=== PATIENT | female | born 1960 | race Caucasian/White ===

== ENCOUNTER 2016-08-01 00:21 | Emergency (ER) | payer MEDICARE, MEDICAID ==
[2016-08-01 00:45] LABS: BASO % 0.1 % (0-2); HCT-HEMATOCRIT 41.7 % (34.0-49.0); HGB-HEMOGLOBIN 14.1 gm/dl (12.0-15.5); IMMATURE GRANULOCYTES ABSOLUTE 0.03 tho/cmm (0-0.03); IMMATURE GRANULOCYTES PERCENT 0.3 % (0-0.3); LYMPH % 12.3 % (20-45); LYMPH ABSOLUTE COUNT 1.3 tho/cmm (0.8-4.5); MCH (MEAN CORPUSCULAR HGB) 29.6 pg (28.0-32.0); MCHC MEAN CORPUSCULAR HGB CONC 33.8 % (32.0-36.0); MCV (MEAN CELL VOLUME) 87.4 fl (82.0-96.0); MEAN PLATELET VOLUME 10.1 cmc (9.4-12.4); MONO % 2.1 % (0-12); MONOCYTE ABSOLUTE COUNT 0.2 tho/cmm (0.0-1.2); NEUTROPHIL ABSOLUTE COUNT 9.2 tho/cmm (1.6-8.0); NEUTROPHIL-AUTOMATED 9.2 tho/cmm (1.6-8.0); NEUTROPHILS % 85.2 % (40-80); PLATELET COUNT 297 tho/cmm (150-450); RED BLOOD COUNT 4.77 mil/cmm (4.00-5.20); RED CELL DISTRIBUTION WIDTH 12.3 % (12.4-16.4); WHITE BLOOD COUNT 10.8 tho/cmm (4.0-10.0)
[2016-08-01 01:05] LABS: ALKALINE PHOSPHATASE 54 U/L (33-138); ALT/SGPT 24 U/L (12-78); BILIRUBIN,TOTAL 0.5 mg/dl (0-1.5); BLOOD UREA NITROGEN 14 mg/dl (6-24); CALCIUM 9.7 mg/dl (8.5-10.5); CARBON DIOXIDE-VENOUS 24 mmol/L (22-32); CHLORIDE 105 mmol/l (96-110); GLUCOSE 128 mg/dL (70-110); SODIUM 139 mmol/L (135-145); eGFR VALUE FOR BLACK >60 mL/Min
[2016-08-01 01:07] LABS: ANION GAP 15 mmol/L (0-20); POTASSIUM 4.5 mmol/L (3.7-5.1)
[2016-08-01 01:08] LABS: AST/SGOT 35 U/L (10-40)
[2016-08-01 01:33] LABS: URINE BILIRUBIN NEGATIVE (NEG); URINE BLOOD LARGE (NEG); URINE GLUCOSE (UA) NEGATIVE (NEG); URINE KETONE SMALL (NEG); URINE LEUKOCYTE ESTERASE NEGATIVE (NEG); URINE NITRITE NEGATIVE (NEG)
[2016-08-01 01:35] LABS: URINE APPEARANCE HAZY; URINE COLOR PALE YELLOW; URINE SPECIFIC GRAVITY 1.005 (1.003-1.030)
[2016-08-01 01:47] LABS: URINE PROT SULFOSALICYLIC ACID TRACE (NEG)
[2016-08-01 01:48] LABS: URINE EPITHELIAL CELLS RARE /[HPF] (0-10); URINE RBC 30-40 /[HPF] (0-5); URINE WBC RARE /[HPF] (0-5)
[2016-08-01] MEDS ORDERED: CYMBALTA60 M1 PO (02:06)
[2016-08-01] MEDS ORDERED: FISH OIL GUMMI1 EACH PO (02:08)
[2016-08-01] MEDS ORDERED: ADDERALL PO (02:09)
[2016-08-01] MEDS ORDERED: VITAMIN D31000 UNI3 PO (02:10)
[2016-08-01] MEDS ORDERED: TRAZODONE HCL50 M1 PO (03:02)
[2016-08-01] MEDS ORDERED: ASPIRIN325 M3 PO (03:02)
[2016-08-01] MEDS ORDERED: KLONOPIN1 M1 PO (03:02)
== END 2016-08-01 03:11 ==
LOC: EDMED 00:21
PROVIDERS: Emergency Medicine
DX: R07.89 Other chest pain (principal); R06.02 Shortness of breath; M54.9 Dorsalgia, unspecified; R31.9 Hematuria, unspecified; D72.829 Elevated white blood cell count, unspecified; F41.9 Anxiety disorder, unspecified; F32.9 Major depressive disorder, single episode, unspecified; M19.90 Unspecified osteoarthritis, unspecified site; M79.662 Pain in left lower leg; Z79.899 Other long term (current) drug therapy
CPT/HCPCS: G0478; G0480; J7030